=== PATIENT | male | born 1945 | race Caucasian/White ===

== ENCOUNTER 2023-11-28 11:02 | Inpatient (IN) | payer OTHER, SELFPAY ==
[2023-11-28] VITALS (9 sets, daily range): BP systolic 102–127; BP diastolic 62–76; BMI 18.0; BMI 17.5
[2023-11-28 07:47] LABS: % Basophils 0.1 % (0-2); % Eosinophils 0.1 % (0-6); % Immature Granulocytes 0.6 % (0-0.5); % Lymphocytes 5.3 % (20.5-51.1); % Monocytes 5.8 % (1.7-9.3); % Neutrophils 88.1 % (42.2-75.2); Absolute Immature Granulocytes 0.1 10^3/uL (0-0.05); Absolute Lymphocytes 0.5 10^3/uL (1.2-3.4); Absolute Monocytes 0.6 10^3/uL (0.1-0.6); Hematocrit 32.6 % (39.0-52.0); Hemoglobin 11.4 g/dL (13.0-18.0); Mean Corpuscular Hgb 31.7 pg (27.0-31.0); Mean Corpuscular Volume 90.6 fL (80.0-94.0); Mean Platelet Volume 11.3 fL (7.4-10.4); Nucleated Red Blood Cells % 0.3 % (-); Platelet Count 265 10^3/uL (130-400); White Blood Cell Count 10.2 10^3/uL (4.8-10.8)
[2023-11-28 07:52] LABS: Urine Albumin 1+ (Neg - Trace); Urine Bilirubin 2+ (Negative); Urine Character Clear (Clear); Urine Color Yellow; Urine Glucose Negative (Negative); Urine Ketone Trace (Negative); Urine Leukocyte Trace (Negative); Urine Nitrite Negative (Negative); Urine Occult Blood 4+ (Negative); Urine Specific Gravity 1.025 (<1.030); Urine Urobilinogen 2+ (Neg - 1+)
[2023-11-28 08:02] LABS: COVID-19 Antigen Negative (Negative)
[2023-11-28 08:03] LABS: Alcohol None Detected; Blood Urea Nitrogen 45 mg/dl (9-20); Carbon Dioxide 26 mmol/L (22-30); Chloride 96 mmol/L (98-107); Estimated Creatinine Clearance 30 ml/min; Glucose 92 mg/dl (70-99); Sodium 135 mmol/L (135-145); eGFR 47.65
[2023-11-28 08:05] LABS: Calcium 13.8 mg/dl (8.4-10.2)
--- NOTE | 2023-11-28 08:10 | EDRN ---
Dr Bishop notified of critical value CA
--- NOTE | 2023-11-28 08:14 | ED.GENMED ---
History of Present Illness
General
Chief Complaint: Change in Mental Status
Source: patient and spouse
Exam Limitations: none
Time Seen by Provider: 11/28/23 08:03
Nursing documentation reviewed up to this point in time: agreed with
Travel History
Have you had any contact with someone who has COVID-19?: Unable to Answer
Do you have any symptoms of coronavirus? Fever > 100 degrees, chills, cough, shortness of breath, sore throat, loss of taste or smell, muscle aches, or headache?: Unable to Answer
History of Present Illness
History of Present Illness:
78-year-old male presents emergency department due to weakness, altered mental status not eating and multiple falls. It seems to be getting worse over the past 3 days.
Past History
Past History
ED Past Medical History: CAD, HTN, Hypercholesterolemia, NE and Other (Sciatic )
ED Past Surgical History: Cardiac (Stent), Orthopedic (Right and left hip replacement) and Other (Lens implant)
Social History
Tobacco: Smoker
Alcohol: Daily (2-3 beers)
Drug: None
Personal:
Living: with family
Review of Systems
Review of Systems
Allergies reviewed?: Yes
All Other Systems: Not applicable
Constitutional: Reports fatigue
EENT: Reports no symptoms
Respiratory: Reports cough
Cardiac: Reports no symptoms
ABD/GI: Reports anorexia
: Reports no symptoms
Musculoskeletal: Reports no symptoms
Skin: Reports no symptoms
Neurological: Reports weakness and other (Confusion)
Endocrine: Reports no symptoms
Hematologic/Lymphatic: Reports no symptoms
Psychiatric: Reports no symptoms
Phy Exam
Physical Exam
Physical Exam:
Physical Exam
General: Thin, cachectic, afebrile
Neck: supple. no meningeal signs. normal posterior pharynx
Heart: s1/s2 regular rate and rhythm, no murmur. equal radial
pulses.
HEENT: Pupils equal round reactive to light, EOMI
Lungs: no acute respiratory distress. clear bilaterally, cough
Abdomen: normal bowel sounds. not tender. no CVAT
Neuro: alert and oriented to person. Moves all extremities, but globally weak. Cranial nerves II through XII intact
Skin: no rash
Psychiatric: well kept. interactive and cooperative
Extremities: no edema. no calf tenderness. negative homans. good distal pulses
Course
Orders/Labs/Results
Orders:
Orders
11/28/23 Breakfast
NPO
Allow oral meds: Yes
Allow clear liquids: No
11/28/23 07:06
Electrocardiogram (*1) Urgent
Reason for Study: Fatigue / Weakness
EKG- Treatment ONCE
11/28/23 07:08
Lidocaine 2% [Lidocaine Uro-Jet 2%] 1 syringe .ROUTE .STK-MED ONE
11/28/23 07:30
Alcohol Urgent
Basic Metabolic Panel Urgent
COVID-19 Antigen Urgent
Source: Nasal Swab
Complete Blood Count/With Diff Urgent
Urinalysis Reflex To Culture Urgent
Date Specimen was Collected: 11/28/23
Time Specimen was Collected: 07:06
Urine Microscopic Reflex Cult Urgent
Influenza A+B Rapid Molecular Urgent
ANGELINE Source: Nasal Swab
Specimen Description:
Date Specimen was Collected: 11/28/23
Time Specimen was Collected: 07:06
11/28/23 07:33
Lactic Acid Urgent
Blood Culture Routine
ANGELINE Source: Blood/Venous
Specimen Description:
11/28/23 08:14
CT Head W/o Iv Contrast Urgent
Comment:
Reason For Exam: altered mental status, recent fall
11/28/23 08:15
Pelvis, 1 or 2 Views CR [CR Pelvis - 1 Or 2 Views ] Urgent
Comment:
Reason For Exam: fall
11/28/23 08:16
CR Chest - 2 Views Urgent
Comment:
Reason For Exam: cough
11/28/23 08:28
0.9% Sodium Chloride 1000 ml [Nss] 2,000 ml IV BOLUS
11/28/23 10:21
Creatine Phosphokinase Urgent
Comment: ADDED
Uuazb-Tdki-Uaxrgyx Urgent
Potassium Urgent
TSH Urgent
Comment: ADDED
11/28/23 10:37
Admit/Transfer Patient As Directed
Co-Sign Provider:
Level of Care: Inpatient admission
Assign to:: Telemetry
Physician / Group: Francois
Diagnosis: TME, hypercalcemia
Reason for Telemetry: Arrhythmia
Date to Stop Telemetry: 12/01/23
Time to Stop Telemetry: 11:00
Reason for Hospitalization: Above
Expected length of stay greater than two midnights?: Yes
ELOS- Estimated Length of Stay in days: 2
I certify the patient meets the requirements for IP care: Yes
11/28/23 10:42
Code Status As Directed
Resuscitation Status: Do not resuscitate
Reached after discussion with pt or family/Healthcare POA: Yes
DNR Bracelet Application ONCE
11/28/23 10:47
Bladder Scan As Directed
Follow Bladder Retention/Intermittent Cath Algorithm?: Yes
PRN if no void in __ hours: 6
Frequency: Per Retention Algorithm
If Bladder Scan Result >: 400
then:: Straight cath
DX Deep Vein Thrombosis Video Routine
11/28/23 10:54
US Abdomen Complete/Upper Routine
Comment:
Reason For Exam: abnormal LFT
11/28/23 12:28
0.9% Sodium Chloride 1000 ml [Nss] 1,000 ml IV 125 mls/hr
11/28/23 12:28
Add On- LAB Routine
Tests Added?: CPK, TSH
NEPHROLOGY CONSULT Routine
Consulting Provider: Curtis George
Was physician already notified: Yes
Medical Records Request [Obtain Records] As Directed
Dates of Information to be Released: 11/27
Type of Information Requested: Last Office Visit H&P
Straight Cath As Directed
Frequency: Per Retention Algorithm
Additional Instructions: straight cath as needed per acute urinary retention algorithm for 24 hrs
Additional Instructions: for bladder scan greater than 400 mL
Physical Therapy Consult [Pt Eval And Treat] Routine
Activity Level: As Tolerated
Speech Therapy Eval & Treat Routine
11/28/23 12:33
Metoprolol Xl [Toprol Xl] 12.5 mg PO DAILY
11/28/23 12:47
Ammonia Routine
Lactic Acid Q6H
PTH Related Peptide LC-MS/MS [S] Routine
PTH [Intact PTH Includes Calcium] Routine
Protein Electrophoresis Reflex [S] Routine
11/28/23 18:28
Lactic Acid Q6H
11/28/23 20:00
Heparin 5,000 units SC Q12
11/29/23 06:00
CBC/With Diff [Complete Blood Count/With Diff] IN AM
CMP [Comprehensive Metabolic Panel] IN AM
Ionized Calcium IN AM
11/29/23 08:00
Aspirin Chewable [Low Strength Aspirin] 81 mg PO DAILY
12/01/23 11:00
DC Protocol for Telemetry ONCE
Abnormal Lab Results
11/28/23 11/28/23 11/28/23
07:30 07:33 10:21
RBC 3.60 L 10^6/uL
(4.70-6.10)
Hgb 11.4 L g/dL
(13.0-18.0)
Hct 32.6 L %
(39.0-52.0)
MCH 31.7 H pg
(27.0-31.0)
RDW 16.0 H %
(11.5-14.5)
MPV 11.3 H fL
(7.4-10.4)
Abs Immat Gran (auto) 0.1 H 10^3/uL
(0-0.05)
Absolute Neuts (auto) 9.0 H 10^3/uL
(1.4-6.5)
Absolute Lymphs (auto) 0.5 L 10^3/uL
(1.2-3.4)
Immature Gran % 0.6 H %
(0-0.5)
Neutrophils % 88.1 H %
(42.2-75.2)
Lymphocytes % 5.3 L %
(20.5-51.1)
Chloride 96 L mmol/L
(98-107)
BUN 45 H mg/dl
(9-20)
Creatinine 1.5 H mg/dL
(0.7-1.3)
Lactic Acid 4.0 H* mmol/L
(0.7-2.0)
Calcium 13.8 H* mg/dl
(8.4-10.2)
Total Bilirubin 4.9 H mg/dl
(0.2-1.3)
Direct Bilirubin 3.6 H mg/dl
(0.0-0.4)
AST 581 H* U/L
(17-59)
ALT 163 H U/L
(0-50)
Alkaline Phosphatase 375 H U/L
(38-126)
Creatine Kinase 352 H U/L
(55-170)
Total Protein 6.0 L g/dl
(6.3-8.2)
Albumin 2.8 L g/dl
(3.5-5.0)
Urine Ketones Trace A
(Negative)
Ur Occult Blood Reflex 4+ A
(Negative)
Urine Bilirubin 2+ A
(Negative)
Urine Urobilinogen 2+ A
(Neg - 1+)
Leukocyte Esterase Rfl Trace A
(Negative)
Urine RBC >100 A /HPF
(0-2)
Urine Bacteria (Reflex) Few A
(Negative)
Urine Albumin (Reflex) 1+ A
(Neg - Trace)
11/28/23 07:30
11/28/23 10:21
Vital Signs
Initial and Last Documented VS:
Initial Vital Signs
BP
102/72
11/28/23 07:00
Last Documented Vital Signs
Temp Pulse Resp BP Pulse Ox
97.6 F 96 22 124/68 96
11/28/23 12:42 11/28/23 12:42 11/28/23 12:42 11/28/23 12:42 11/28/23 12:42
MDM/Problems Addressed
Differential Diagnosis Includes:
Malignancy, hypercalcemia, acute kidney injury, hypertension 78-year-old
MDM/Problems Addressed:
78-year-old male with hypercalcemia, possibly malignancy, acute kidney injury, lactic acidosis. Admit to hospitalist.
Chronic conditions affecting care: HTN and CAD
Acute Exacerbation and/or Progression of Chronic Illness: HTN and CAD
*Radiology
Radiology exam reviewed: radiology read reviewed (Chest x-ray no acute findings, pelvic x-ray no acute findings, CT head no acute findings)
*Pulse Oximetry
Patient hypoxic: no
*EKG
Interpreted by ED Provider?: Yes
EKG Intrepretation Date: 11/28/23
EKG Intrepretation Time: 07:11
Interpretation: abnormal
Comparison EKG: changes noted
Heart Rate: 96
Rate: normal
Rhythm: sinus
Deloit: normal axis
Interval: first degree heart block
QRS Pattern: normal QRS
Ischemia: T-wave inversion
*Beater Engineer Interpretation
Rate: normal
Interpretation: normal
Heart Rate: 95
Rhythm: sinus
*Critical Care Note
Total Time (30-74mins, 75-104mins- exclusive of procedures): Not Applicable
Data Reviewed
Review of Other/Old Records Reveals: Labs (Prior hemoglobin 10.9 on 06/25/2023, prior calcium 8.6 on 06/25/2023)
Source: records
Patient Management
Social determinants of health affecting care: Living situation
Discussion with other providers: Hospitalist
Escalation/DeEscalation of care consider admission/obs:
Admit indicated
ED Attending Note
-
Portions of this chart may have been created with voice recognition software.� Occasional wrong word or��sound alike� substitutions may have occurred due to the inherent limitations of voice recognition software.
Discharge Plan
Departure
Patient Disposition: Admit
Date of Disposition: 11/28/23
Time of Disposition: 09:10
Admit to: IMU
Presentation/result/management discussed w/ accepting MD/DO: Hospitalist
Patient with high blood pressure during this ER visit?: No
Condition: Fair
Discharge Problem:
Acute renal failure, Hypercalcemia, Altered mental status, Acidosis, lactic
Interventions
Interventions:
*Risk Screen - Suicide Last Done: 11/28/23 12:45
*General Assessment Last Done: 11/28/23 07:36
*Neglect/Abuse Screening Last Done: 11/28/23 07:39
ED- Fall Risk Assessment Last Done: 11/28/23 07:36
*ED COVID-19 Vaccine History Last Done: 11/28/23 12:45
*Nursing Disposition Last Done: 11/28/23 12:22
ED- Pulmonary Assessment Last Done: 11/28/23 07:37
ED- Neurological Assessment Last Done: 11/28/23 07:37
ED- Cardiac Assessment Last Done: 11/28/23 07:36
ED Swallowing Screen Last Done: 11/28/23 09:34
Discharge Date and Time
Discharge Date/Time: 11/28/23 12:23
[2023-11-28] MEDS: NSS 2000 IV (08:30)
[2023-11-28 09:24] LABS: Urine Amorphous Seen
[2023-11-28 09:25] LABS: Urine Red Blood Cell >100 /HPF (0-2); Urine White Cell 0-2 /HPF (0-5)
[2023-11-28 09:26] LABS: Urine Bacteria Few (Negative)
--- NOTE | 2023-11-28 10:48 | HPS.HSE ---
Family Physician
-
Family Physician: Eduardo Barraza MD
Chief Complaint
-
Altered mental status
History of Present Illness
Patient is a 78-year-old male with history of coronary artery disease, hypertension, tobacco smoking, alcohol use disorder who was brought to the emergency room accompanied by his due to altered mental status. Patient himself not able to
present any additional information about his stating that patient is getting extremely weak not able to ambulate. He has minimal oral intake over the last few weeks with persistent loss of weight. There is no complaints of fever, chills or
any complaints suggestive of possible source of any infection. In addition patient's states that he has been confused and not making sense in conversations.
Patient has been evaluated by ENT for head and neck mass and plan for PET scan for presumed malignancy. No recent information available at this point.
Medical History
Past Medical History
Past Medical History: Reports CAD, HTN and Hypercholesterolemia
Past Surgical History: Reports Orthopedic
Social History
Tobacco: Smoker
Alcohol: Daily
Personal:
Living: With Family
Family History
Family History: Not pertinent
Allergies / Home Medications
Allergies reflects when Allergies were last updated in [facility].
Home Medications with original date entered in [facility]
Allergy/Medication List:
Allergies
Allergy/AdvReac Type Severity Reaction Status Date / Time
No Known Allergies Allergy Verified 11/28/23 07:44
Home Medications
atorvastatin 40 mg tablet 40 mg PO QPM High cholesterol 01/06/22
cyanocobalamin (vitamin B-12) 100 mcg tablet 1,000 mcg PO DAILY Supplement 01/06/22
metoprolol succinate 25 mg tablet,extended release 24 hr 12.5 mg PO DAILY Blood pressure 01/06/22
multivitamin with folic acid 400 mcg tablet (Tab-A-Lambert) 1 tab PO DAILY Supplement 01/06/22
alendronate 70 mg tablet 70 mg PO FR Osteoporosis 03/03/22
aspirin 81 mg chewable tablet 81 mg PO DAILY Blood Clot Prevention/Tx 06/25/23
cholecalciferol (vitamin D3) 25 mcg (1,000 unit) capsule (Vitamin D3) 25 mcg PO DAILY Supplement 11/28/23
ferrous sulfate 325 mg (65 mg iron) tablet (Feosol) 325 mg PO MOWEFR Supplement 11/28/23
Review of Systems
-
Unable to obtain full review of systems at this time due to: Acuity
Physical Exam
Vital Signs
Vital Signs
Temp Pulse Resp BP Pulse Ox
98.3 F 97 17 111/62 98
11/28/23 07:02 11/28/23 10:30 11/28/23 10:30 11/28/23 10:00 11/28/23 07:37
Physical Exam
General: Cachectic
HEENT: NormoCephalic, Moist mucous membranes and Atraumatic
Respiratory: Clear
Cardiac: S1/S2 and Regular Rhythm; No Murmur or Rub
GI: Soft, Non Tender, Non Distended and Normal Bowel Sounds; No Organomegaly
Rectal: Deferred by Provider
Musculoskeletal: No Clubbing, No Cyanosis and No Edema
Skin: No Rash
Neuro: Awake, Alert and Nonfocal/grossly intact; No Oriented
Laboratory Results
-
11/28/23 07:30
Laboratory Results
Lactic Acid 4.0 mmol/L (0.7-2.0) H* 11/28/23 07:33
Total Bilirubin Cancelled 11/28/23 09:25
AST Cancelled 11/28/23 09:25
ALT Cancelled 11/28/23 09:25
Alkaline Phosphatase Cancelled 11/28/23 09:25
Data Reviewed
-
CT Scan: Report Reviewed by me
Lab Data: Labs Reviewed by me
Impression/Plan
-
IMPRESSION:
78 years old male with history of coronary artery disease and stent, hypertension alcohol use and tobacco use disorder who presents to the emergency room with altered mental status.
Toxic metabolic encephalopathy suspect secondary to severe hypercalcemia. Calcium level 13.8
Acute kidney injury.
Abnormal LFTs with mixed picture of hyperbilirubinemia and transaminitis
Lactic acidosis.
Cachexia, severe with BMI of 18.
Head and neck mass being worked up as outpatient
Conditions prior to admission:
CAD with history of percutaneous interventions
Essential hypertension
Preserved LVEF by echocardiogram 2020
Tobacco use disorder
Alcohol use disorder
History of ambulatory dysfunction with falls
Bilateral hip fracture with repair.
PLAN:
Toxic metabolic encephalopathy suspect secondary to severe hypercalcemia and SAMARA.
Patient is lethargic, while limited neurologic exam has no focal findings
CT scan of the head with no acute abnormality.
Continue close neurologic monitoring
Correct electrolyte abnormalities
Acute kidney injury.
Lactic acidosis.
Severe hypercalcemia
Hypochloremic/contraction alkalosis.
Bladder scan on exam with no retention.
Urinalysis with microhematuria and +1 proteinuria
Check CPK.
Ionized calcium
PTH.
SPEP
Monitor for retention
Patient with head and neck mass being worked up with ENT with concern for malignancy. Obtain outpatient medical records.
Lactic acidosis, although afebrile with normal white count and hemodynamically stable with at this point likely concern for infection. Monitor closely off antibiotics pending blood cultures
IV hydration with isotonic solution. Avoid hypotension
May require biphosphonate.
Abnormal LFT.
Patient with history of alcohol use disorder.
Will check ultrasound of the abdomen.
Hepatitis serologies
Check CPK.
Hold statin
CAD.
History of stent
Most recent echo in 2020 with preserved biventricular function.
Continue aspirin
Hold statin given abnormal LFTs
Alcohol use disorder.
Patient's reported last alcoholic drink about 3 weeks
Patient with overall failure to thrive and low oral intake.
Monitor for possible withdrawal, although less likely at this point.
Severe cachexia.
BMI 18
Nutrition consult.
CODE STATUS DNR
In discussion with patient's at the bedside she states that he would not like to have any aggressive/heroic measures of life maintenance
DVT prophylaxis heparin.
[2023-11-28 10:49] LABS: ALT (SGPT) 163 U/L (0-50); AST (SGOT) 581 U/L (17-59); Albumin 2.8 g/dl (3.5-5.0); Alkaline Phosphatase 375 U/L (38-126); Direct Bilirubin 3.6 mg/dl (0.0-0.4); Potassium 4.2 mmol/L (3.5-5.1); Total Bilirubin 4.9 mg/dl (0.2-1.3)
--- NOTE | 2023-11-28 12:00 | PTCARENOTE ---
Received pt from ER. Pt awake, alert and oriented to himself, garbled speech very difficult to understand/ slow to process, slow to respond. Stares blankly when asked a question. Pt VSS 96% on RA. at bedside to help with admission questions.Pt
did not pass swallow screen NPO order in place, unable to take PO meds, MD aware. Pt has no c/o pain at this time.NSR-PACs and PVCs on tele. Pt oriented to room, call ambrosio within reach, HOB elevated, Bed alarm in place, plan of care continues.
[2023-11-28 13:10] LABS: Ammonia < 9 umol/L (9-30); Lactic Acid 2.6 mmol/L (0.7-2.0)
[2023-11-28] MEDS: NSS 1000 IV ×2 (13:31→21:46)
--- NOTE | 2023-11-28 13:36 | W.CON.NEPH ---
Consultation
-
Date/Time Consultation Requested: 09/28/2023 9 AM
Date/Time Consultation Performed: 02/28/2024 1 PM
Requesting Provider: Dr. Parrish
Performing Provider: Dr. George
Reason for Consultation: Hypercalcemia, acute kidney injury
Medical History
-
Chief Complaint: Hypercalcemia, acute kidney injury
History of Present Illness:
This is a 78-year-old gentleman who has hypertension on a monotherapy regimen, hyperlipidemia on statin therapy, osteoporosis on bisphosphonate therapy. He had been in the hospital in June of last year with bronchitis. CT scan of the chest at
that time did not show any abdominal pathology from what could be seen. Several weeks ago he had apparently reported a mass at the base of his jaw and had seen ENT at [place]. A CT scan was performed and a biopsy of a lymph node was also
performed. The results of these are currently unavailable. However, the reports that a PET scan was also ordered as well. He had also been having failure to thrive with decreasing appetite and weight loss. Initially a abdominal CT was
ordered for today. He came to the emergency room this time because of worsening mental status. He was noted to have hypercalcemia at 13.8 with acute kidney injury at 1.5 creatinine.
Past Medical History
Coronary artery disease with stenting, hypertension, hyperlipidemia, osteoporosis, bilateral femur ORIF, right humerus ORIF
Social History
Tobacco: Smoker
Alcohol: Daily
Family History
Family History: Not Pertinent
Allergies / Home Medications
Allergy/AdvReac Type Severity Reaction Status Date / Time
No Known Allergies Allergy Verified 11/28/23 07:44
�Medication �Instructions �Recorded �Confirmed �Type
atorvastatin 40 mg tablet 40 mg PO QPM High cholesterol 01/06/22 11/28/23 History
cyanocobalamin (vitamin B-12) 100 1,000 mcg PO DAILY Supplement 01/06/22 11/28/23 History
mcg tablet
metoprolol succinate 25 mg 12.5 mg PO DAILY Blood pressure 01/06/22 11/28/23 History
tablet,extended release 24 hr
multivitamin with folic acid 400 1 tab PO DAILY Supplement 01/06/22 11/28/23 History
mcg tablet (Tab-A-Lambert)
alendronate 70 mg tablet 70 mg PO FR Osteoporosis 03/03/22 11/28/23 History
aspirin 81 mg chewable tablet 81 mg PO DAILY Blood Clot 06/25/23 11/28/23 History
Prevention/Tx
cholecalciferol (vitamin D3) 25 25 mcg PO DAILY Supplement 11/28/23 11/28/23 History
mcg (1,000 unit) capsule (Vitamin
D3)
ferrous sulfate 325 mg (65 mg 325 mg PO MOWEFR Supplement 11/28/23 11/28/23 History
iron) tablet (Feosol)
Review of Systems
-
No chest pain or shortness of breath. Decreased appetite.
All other systems: Negative unless noted
Physical Exam
Vital Signs
Vital Signs
Temp Pulse Resp BP Pulse Ox
97.6 F 96 22 124/68 96
11/28/23 12:42 11/28/23 12:42 11/28/23 12:42 11/28/23 12:42 11/28/23 12:42
Lab Results
WBC 10.2 10^3/uL (4.8-10.8) 11/28/23 07:30
RBC 3.60 10^6/uL (4.70-6.10) L 11/28/23 07:30
Hgb 11.4 g/dL (13.0-18.0) L 11/28/23 07:30
Hct 32.6 % (39.0-52.0) L 11/28/23 07:30
Plt Count 265 10^3/uL (130-400) 11/28/23 07:30
Sodium 135 mmol/L (135-145) 11/28/23 07:30
Potassium 4.2 mmol/L (3.5-5.1) 11/28/23 10:21
Chloride 96 mmol/L (98-107) L 11/28/23 07:30
Carbon Dioxide 26 mmol/L (22-30) 11/28/23 07:30
BUN 45 mg/dl (9-20) H 11/28/23 07:30
Creatinine 1.5 mg/dL (0.7-1.3) H 11/28/23 07:30
eGFR 47.65 11/28/23 07:30
Glucose 92 mg/dl (70-99) 11/28/23 07:30
Albumin 2.8 g/dl (3.5-5.0) L 11/28/23 10:21
Physical Exam
Patient is awake alert oriented and in no distress. Mood and affect were pleasant, insight and judgment were good. Pupils are equal round and reactive to light, extraocular movements are intact, sclera were anicteric. Hearing was normal, ears and
nose are intact. Oropharynx was dry. Neck was supple with trachea midline and no thyromegaly. Firm mass approximately 8 cm in width at the base of the jaw. Heart was regular rate and rhythm without rubs. Lower extremities without edema. Lungs
were clear to auscultation bilaterally and with normal excursion. Abdomen was soft, nontender, with normal active bowel sounds, and no hepatosplenomegaly. Firm mass approximately 8 cm in width in the epigastric region. skin was without rash and
with normal turgor.
Data Reviewed
-
Radiology: Image Personally Visualized and interpreted (On November 28, 2023 chest x-ray by my reading shows no acute disease)
CT Scan: Report Reviewed by me (On November 28, 2023 CT of the head shows no skull lesions)
Ultrasound: Report Reviewed by me (On November 28, 2023 abdominal ultrasound with symmetric kidneys 9.9 cm, discrete enlarged heterogeneous liver lesions up to 8.7 cm in the right lobe consistent with metastatic disease)
Labs: Labs Reviewed by me (WBC 10.2, hemoglobin 11.4, platelets 265, sodium 135, potassium 4.2, carbon dioxide 26, BUN 45, creatinine 1.5, lactic acid 2.6, calcium 13.8, total bilirubin 4.9, direct bilirubin 3.6, AST 581, ALT 163)
Old Records: Reviewed (CT chest on June 24, 2023 shows no liver lesions)
Assessment/Plan
-
Assessment:
Hypercalcemia
Acute kidney injury
Hypertension
Tongue mass
Abdominal mass
Liver nodules likely metastatic disease
Coronary artery disease
Osteoporosis
Plan:
Hypercalcemia workup has been ordered, blood work has been drawn. 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
Pamidronate will be given
Saline volume repletion
Follow basic metabolic profile
Abdominal/Pelvis CT
Will need results of lymph node biopsy from [place]
Discussed with at length
[2023-11-28 13:47] LABS: Creatine Phosphokinase 352 U/L (55-170)
[2023-11-28 13:55] LABS: Calcium 13.1 mg/dl (8.4-10.2)
[2023-11-28] MEDS: AREDIA 260 MG IV (14:21)
[2023-11-28 14:48] LABS: Phosphorus 4.3 mg/dl (2.5-4.5)
[2023-11-28 14:59] LABS: Vitamin D, 25-OH*** 61.7 ng/mL (30-80)
[2023-11-28 15:13] LABS: TSH 1.92 uIU/ml (0.47-4.68)
[2023-11-28] MEDS: THIAMINE INJECTION 200 MG IV ×2 (17:07→23:43)
[2023-11-28 19:16] LABS: Lactic Acid 2.4 mmol/L (0.7-2.0)
[2023-11-28] MEDS: HEPARIN 5000 UNITS SC (20:54)
[2023-11-29] VITALS (10 sets, daily range): BP systolic 87–133; BP diastolic 54–79
[2023-11-29] MEDS: ATIVAN 0.5 MG IV (00:45)
[2023-11-29] MEDS: NSS (PRESERVATIVE FREE) 0.25 ML IV (00:45)
--- NOTE | 2023-11-29 00:49 | PTCARENOTE ---
MSAS at 0000 - 5. Patient restless, 133/72, 112, temp 98.2 axillary, pulse ox 96 on 2 L. OPERATIONAL REVIEW SERGEANT made aware and ordered stat Ativan.
[2023-11-29] MEDS: NSS 1000 IV ×3 (05:22→20:32)
[2023-11-29 06:36] LABS: % Basophils 0.1 % (0-2); % Immature Granulocytes 0.5 % (0-0.5); % Lymphocytes 2.9 % (20.5-51.1); % Monocytes 5.1 % (1.7-9.3); % Neutrophils 91.4 % (42.2-75.2); Absolute Immature Granulocytes 0.1 10^3/uL (0-0.05); Absolute Lymphocytes 0.4 10^3/uL (1.2-3.4); Absolute Monocytes 0.6 10^3/uL (0.1-0.6); Absolute Neutrophils 11.2 10^3/uL (1.4-6.5); Hematocrit 28.9 % (39.0-52.0); Hemoglobin 9.7 g/dL (13.0-18.0); Ionized Calcium 1.73 mMOL/L (1.15-1.33); Mean Corp Hgb Conc. 33.6 g/dL (33.0-37.0); Mean Corpuscular Hgb 31.2 pg (27.0-31.0); Mean Corpuscular Volume 92.9 fL (80.0-94.0); Mean Platelet Volume 11.2 fL (7.4-10.4); Nucleated Red Blood Cells % 0 % (-); Platelet Count 233 10^3/uL (130-400); Red Blood Cell Count 3.11 10^6/uL (4.70-6.10); Red Cell Dist. Width 16.4 % (11.5-14.5); White Blood Cell Count 12.3 10^3/uL (4.8-10.8)
--- NOTE | 2023-11-29 06:40 | PTCARENOTE ---
Critical lab. Ionized Calcium 1.73. Ofe Felder NP aware.
[2023-11-29 07:11] LABS: ALT (SGPT) 177 U/L (0-50); AST (SGOT) 611 U/L (17-59); Albumin 2.8 g/dl (3.5-5.0); Alkaline Phosphatase 361 U/L (38-126); Blood Urea Nitrogen 43 mg/dl (9-20); Calcium 12.9 mg/dl (8.4-10.2); Carbon Dioxide 22 mmol/L (22-30); Chloride 107 mmol/L (98-107); Estimated Creatinine Clearance 29 ml/min; Glucose 77 mg/dl (70-99); Potassium 4.1 mmol/L (3.5-5.1); Sodium 140 mmol/L (135-145); Total Bilirubin 4.9 mg/dl (0.2-1.3); Total Protein 5.9 g/dl (6.3-8.2)
[2023-11-29] MEDS: HEPARIN 5000 UNITS SC ×2 (09:22→20:32)
[2023-11-29] MEDS: THIAMINE INJECTION 200 MG IV ×2 (09:24→16:17)
--- NOTE | 2023-11-29 12:21 | W.PN.NEPH.PH ---
Today's Communication / Plan
-
follow BMP
Assessment/Plan
-
Assessment:
Hypercalcemia
Acute kidney injury
Hypertension
Tongue mass
Abdominal mass
Liver nodules likely metastatic disease
Coronary artery disease
Osteoporosis
Plan:
continue IVF
Follow basic metabolic profile
Will need results of lymph node biopsy from [place]
prognosis is poor given current poor performance status
-
-
Date of Service: November 29, 2023
CC / HPI / ROS
-
Chief Complaint:
hypercalcemia
History of Present Illness:
SAMARA/Cr up to 1.6
Calcium down to 12.9 with pamidronate
no po intake, on IVF
BP stable
LFT remain elevated
Review of Systems:
no CP/SOB/Fever
Labs
-
Labs:
WBC 12.3 10^3/uL (4.8-10.8) H 11/29/23 06:00
RBC 3.11 10^6/uL (4.70-6.10) L 11/29/23 06:00
Hgb 9.7 g/dL (13.0-18.0) L 11/29/23 06:00
Hct 28.9 % (39.0-52.0) L 11/29/23 06:00
Plt Count 233 10^3/uL (130-400) 11/29/23 06:00
Sodium 140 mmol/L (135-145) 11/29/23 06:00
Potassium 4.1 mmol/L (3.5-5.1) 11/29/23 06:00
Chloride 107 mmol/L (98-107) 11/29/23 06:00
Carbon Dioxide 22 mmol/L (22-30) 11/29/23 06:00
BUN 43 mg/dl (9-20) H 11/29/23 06:00
Creatinine 1.6 mg/dL (0.7-1.3) H 11/29/23 06:00
eGFR 44.10 11/29/23 06:00
Glucose 77 mg/dl (70-99) 11/29/23 06:00
Calcium 12.9 mg/dl (8.4-10.2) H 11/29/23 06:00
Phosphorus Cancelled 11/28/23 13:57
Albumin 2.8 g/dl (3.5-5.0) L 11/29/23 06:00
Physical Exam
-
Vital Signs:
Vital Signs
Temp Pulse Resp BP Pulse Ox
97.8 F 100 14 103/69 97
11/29/23 11:15 11/29/23 11:15 11/29/23 11:15 11/29/23 11:15 11/29/23 11:15
Cardiovascular:: Regular rate and rhythm
Respiratory:: Bilateral: Coarse
Lung Excursion:: Normal
Abdomen:: Nontender and Soft
Bowel Sounds:: Normal
Extremity Edema:: None: Bilateral:
--- NOTE | 2023-11-29 15:36 | CM ---
Patient seen bedside with spouse.
Patient slept soundly the entire time.
Patient lives with spouse in 2nd floor apartment, apparently they have 2 apartments.
No elevator access, just steps.
Per spouse patient was able to navigate steps.
Patient has over the toilet commode, walker and cane.
cannot recall VN or name of skilled rehab patient was in in the past.
PT evaluation (P).
Options list reviewed with spouse for potential VN vs skilled rehab.
PCP: Dr galo
Pharmacy: [facility]
Plan: home with VN vs skilled rehab.
--- NOTE | 2023-11-29 17:22 | W.PN.HOSP.TC ---
Today's Communication/Plan
-
IVF
Pamidronate
Pending outpatient medical records including recent path from ENT base tong mass biopsy
Consider onc consultation
Assessment / Plan
Assessment / Plan
IMPRESSION:
78 years old male with history of coronary artery disease and stent, hypertension alcohol use and tobacco use disorder who presents to the emergency room with altered mental status.
Toxic metabolic encephalopathy suspect secondary to severe hypercalcemia. Calcium level 13.8
Acute kidney injury.
Abnormal LFTs with mixed picture of hyperbilirubinemia and transaminitis
Lactic acidosis.
Cachexia, severe with BMI of 18.
Head and neck mass being worked up as outpatient
Conditions prior to admission:
CAD with history of percutaneous interventions
Essential hypertension
Preserved LVEF by echocardiogram 2020
Tobacco use disorder
Alcohol use disorder
History of ambulatory dysfunction with falls
Bilateral hip fracture with repair.
PLAN:
Toxic metabolic encephalopathy suspect secondary to severe hypercalcemia and SAMARA.
Patient is lethargic, while limited neurologic exam has no focal findings
CT scan of the head with no acute abnormality.
Continue close neurologic monitoring
Correct electrolyte abnormalities
Acute kidney injury.
Lactic acidosis.
Severe hypercalcemia
Hypochloremic/contraction alkalosis.
Bladder scan on exam with no retention.
Urinalysis with microhematuria and +1 proteinuria
PTH.
SPEP
Monitor for retention
Patient with head and neck mass being worked up with ENT with concern for malignancy. Obtain outpatient medical records.
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
Lactic acidosis, although afebrile with normal white count and hemodynamically stable with at this point likely concern for infection. Monitor closely off antibiotics pending blood cultures
IV hydration with isotonic solution. Avoid hypotension
Pamidronate
Abnormal LFT.
Patient with history of alcohol use disorder.
Will check ultrasound of the abdomen.
Hepatitis serologies
Check CPK.
Hold statin
CAD.
History of stent
Most recent echo in 2020 with preserved biventricular function.
Continue aspirin
Hold statin given abnormal LFTs
Alcohol use disorder.
Patient's reported last alcoholic drink about 3 weeks
Patient with overall failure to thrive and low oral intake.
Monitor for possible withdrawal, although less likely at this point.
Severe cachexia.
BMI 18
Nutrition consult.
CODE STATUS DNR
In discussion with patient's at the bedside she states that he would not like to have any aggressive/heroic measures of life maintenance
DVT prophylaxis heparin.
Anticipated Discharge: > 48 hours
Subjective/Interval History
-
Date of Service: November 29, 2023
Objective Data
-
Labs:
Laboratory Results
11/29/23
06:00
WBC 12.3 H
Hgb 9.7 L
Hct 28.9 L
Plt Count 233
Sodium 140
Potassium 4.1
Chloride 107
Carbon Dioxide 22
BUN 43 H
Creatinine 1.6 H
Glucose 77
Calcium 12.9 H
Total Bilirubin 4.9 H
AST 611 H*
ALT 177 H
Alkaline Phosphatase 361 H
Vital Signs:
Vital Signs
Temp Pulse Resp BP Pulse Ox
97.5 F 97 20 116/70 98
11/29/23 16:00 11/29/23 16:00 11/29/23 16:00 11/29/23 16:00 11/29/23 16:00
I&O
11/28/23 11/29/23 11/30/23
06:59 06:59 06:59
Intake Total 0 / 0
Balance 0 / 0
[2023-11-29 20:52] LABS: Glucose - Point of Care 110 mg/dl (70-99)
[2023-11-29] MEDS: MORPHINE SULFATE 1 MG IV (20:59)
[2023-11-29 21:08] LABS: B.E. -6.5 mmol/L; HCO3 20.6 mmol/L (21-28); O2 Saturation % 96.5 % (94-98); PCO2 47 mmHg (35-48); PO2 81 mmHg (83-108); pH 7.25 (7.35-7.45)
[2023-11-29 21:10] LABS: O2 Therapy %Oxygen/Room Air 93
[2023-11-29 21:15] LABS: Hematocrit 29.8 % (39.0-52.0); Hemoglobin 10.2 g/dL (13.0-18.0); Mean Corp Hgb Conc. 34.2 g/dL (33.0-37.0); Mean Corpuscular Hgb 31.7 pg (27.0-31.0); Mean Corpuscular Volume 92.5 fL (80.0-94.0); Mean Platelet Volume 10.5 fL (7.4-10.4); Platelet Count 258 10^3/uL (130-400); Red Blood Cell Count 3.22 10^6/uL (4.70-6.10); Red Cell Dist. Width 16.7 % (11.5-14.5); White Blood Cell Count 11.1 10^3/uL (4.8-10.8)
[2023-11-29 21:30] LABS: Magnesium 2.1 mg/dl (1.6-2.3)
[2023-11-29 21:35] LABS: COVID-19 Antigen Negative (Negative)
[2023-11-29 21:39] LABS: NT-proBNP 4380 pg/ml
--- NOTE | 2023-11-29 22:00 | PTCARENOTE ---
Addendum entered by Jesika Gordon RN 11/30/23 00:37:
Pt at bedside and is really upset. Pt remains on Midflow and NRB, SaO2 93-96%. Drowsy and nonresponsive. Shallow breathing. SBP has been mid 80's. Comfort measure will be talked with .
Original Note:
PROFESSOR OF APOLOGETICS was notified concerning pt mental and physical state. Pt was nonresponsive, eye rolling over, and nonverbal. St in the monitor. Lung sounds were coarse, labor breathing, tachypneic, pale and cyanotic. SaO2 56% 2L. pt was place on NRB 15L. Pt was
able to come up to 93%. Morphine 1 mg Iv giving, CXR, ABG and CT of Head order. SBP was in the high 80's to 90's. Will continue with tx.
[2023-11-29 23:02] LABS: ALT (SGPT) 184 U/L (0-50); AST (SGOT) 630 U/L (17-59); Albumin 2.7 g/dl (3.5-5.0); Alkaline Phosphatase 348 U/L (38-126); Blood Urea Nitrogen 43 mg/dl (9-20); Calcium 12.6 mg/dl (8.4-10.2); Carbon Dioxide 20 mmol/L (22-30); Chloride 110 mmol/L (98-107); Estimated Creatinine Clearance 31 ml/min; Glucose 85 mg/dl (70-99); Potassium 3.9 mmol/L (3.5-5.1); Sodium 140 mmol/L (135-145); Total Protein 5.9 g/dl (6.3-8.2); eGFR 47.65
[2023-11-30] MEDS: THIAMINE INJECTION IV (00:21)
[2023-11-30 00:33] VITALS: BP 88/54
[2023-11-30] MEDS: MORPHINE SULFATE 1 MG IV (00:51)
--- NOTE | 2023-11-30 01:58 | W.PN.UPDATE ---
Update Note
Progress Note Update
This LIFE SKILLS COORDINATOR VOLUNTEER was called to see the patient soon by RN. RN stated, patient is hypoxic, sat 56%. Patient seen and evaluated, pale, eyes rolled up, lethargic, tachypneic at 30, HR 110, Sat 89% -91%, 96/64, 98.1, NRM,, Morphine 1mg IV ordered, CXR, labs,
ABG's, and CT head ordered. Addressed the current situation to spouse Maura, and stated she will over soon.
Reviewed labs, chest xray (discussed with Dr. Huang), CT head, ABG noted. Also discussed with sourcing internship Dr. George, Advised to give 60mg IV. Patient BP noted to be in 80's so unable to give Lasix IV 60mg. Patient oxygen sat continues to drop down to
70's -80' on NRM and NC, Also BP kept dropping to 80's Systolically regardless of continuos IV fluids NS.
at the bedside, discussed the prognosis and current condition, Maura verbalized understanding and wants patient, her to be at comfort level at present, wants all other treatments to be stopped. will order hospice consult, will
order comfort care measures
[2023-11-30] MEDS: NSS 1000 IV (05:48)
[2023-11-30 07:40] VITALS: BP 95/59
--- NOTE | 2023-11-30 09:48 | CM ---
Case Management consult completed
Spoke with patient's ; Hospice is her preference for Hospice referral to evaluate and treat
On-Call pastoral ministries professor notified via [employer]; referral submitted via [employer]
--- NOTE | 2023-11-30 10:09 | HOSPNOTE ---
Spoke with spouse and it appears patient is actively dying. I requested a private room but at this time we are full but many discharges today. Patient will be moved when room is available. Spoke to the floor MARGAUX Albert and we are both in agreement
patient will be medicated with morphine for shortness of breath and wean down oxygen support. I will be available for family. Will continue to follow.
[2023-11-30] MEDS: MORPHINE SULFATE 2 MG IV ×3 (10:22→13:19)
--- NOTE | 2023-11-30 10:30 | PTOTSP ---
Orders received, chart reviewed. Patient is for transition to hospice care; not appropriate for skilled therapy. Will be discharged at this time. If needs change, please re-consult.
--- NOTE | 2023-11-30 11:21 | PN.CDI ---
CDI
- -
CDI:
Physician Documentation Request
Admit Date: 11/28/23 11:02
Dear Doctor Francois,
11/27 RD note states 'severe fat and muscle loss was observed.... Per ASPEN/AND guidelines, pt meets for severe malnutrition in context of chronic illness as evidenced by < 50% intake est needs x > 1 month, 10.8 % weight loss x 6 months, muscle/fat
loss'
Hospitalist progress notes report severe cachexia.
Based on the information, which of the following most accurately represents the patient's nutritional status?
Severe malnutrition
Cachexia without malnutrition
Underweight without malnutrition
Other (please specify)
[place] Criteria ([facility] Hospitalist 2017)
2 or more criteria must be present for either
non severe or severe malnutrition
Note that the criteria differs related to the
presence of an acute or chronic illness
Acute Illness Chronic Illness
Energy Intake Non Severe: <75% for >7 days Non Severe: <75% for >1 month
Severe: <50% for >5 days Severe: <75% for >1 month
Weight Loss Non Severe: 1-2% over 1 week Non Severe: 5% over 1 month
5% over 1 month 7.5% over 3 months
7.5% over 3 months 10% over 6 months
1 year N/A 20% over 1 year
Severe: >2% over 1 week Severe: >5% over 1 month
>5% over 1 month >7.5% over 3 months
>7.5% over 3 months >10% over 6 months
1 year N/A >20% over 1 year
Body Fat Non Severe: Mild Decrease Non Severe: Mild Loss
Severe: Moderate Decrease Severe: Severe Loss
Muscle Mass Non Severe: Mild Decrease Non Severe: Mild Loss
Severe: Moderate Decrease Severe: Severe Loss
Fluid Accumulation Non Severe: Mild Accumulation Non Severe: Mild Accumulation
Severe: Moderate to severe Severe: Moderate to severe
accumulation accumulation
Reduced Sales Representative Livestock Strength Non Severe: N/A Non Severe: N/A
Severe: Measurably reduced Severe: Measurably reduced
Additional criteria that can be used to Determine if Mild or Moderate Malnutrition (Merck Manual 2018)
Mild Moderate Severe
Albumin gm/dl <3.0 gm/dl <2.5 gm/dl <2.0 gm/dl
Pre Albumin mg/dl <15 gm/dl <10 mg/dl <5.0 mg/dl
BMI <18.5 <17 <16
Use of terms such as suspected, likely, concern for, or probable (associated with a specific diagnosis that is being evaluated, monitored, or treated as if it exists) are acceptable and can be coded in the inpatient setting, when documented at the
time of discharge.
Thank you,
Valery Wolfe RN, BSN
CDI Specialist
tiger text
Please use your independent medical judgment in providing your response.
[2023-11-30 12:12] LABS: Intact PTH < 3.4 pg/ml (13.6-85.8)
--- NOTE | 2023-11-30 12:48 | PTCARENOTE ---
Received patient this Am on Comfort Care. Pt opens eye to verbal stimuli. Pt turned an repositioned Q2 hrs. Medicated with Morphine 2mh IV for comfort. Support given to family. Spoke to It Software Engineer Nurse tereza Garcia regarding POC. Made
patient comfortable. Cont to assess patient status. Report to 2 Thaddeus RN an patient transferred.
--- NOTE | 2023-11-30 16:33 | W.PN.DEATH ---
Pronouncement of
-
Called to see patient to pronounce.
No spontaneous heart tones or respirations noted.
Patient not responsive to verbal stimuli.
Patient is pronounced .
Time of : 14:50
Date of : 11/30/23
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
Family Notified: Yes
--- NOTE | 2023-12-01 09:05 | PN.CDI ---
CDI
- -
CDI:
Physician Documentation Request
Admit Date: 11/28/23 11:02
Dear Doctor Francois,
11/29 PLUMBING AND HEATING MECHANIC note states 'his PLUMBING AND HEATING MECHANIC was called to see the patient soon by RN. RN stated, patient is hypoxic, sat 56%. Patient seen and evaluated, pale, eyes rolled up, lethargic, tachypneic at 30, HR 110, Sat 89% -91% NRM.....Patient BP noted to be in 80's
so unable to give Lasix IV 60mg. Patient oxygen sat continues to drop down to 70's -80' on NRM and NC'
Per documented vital signs, pt was placed on NRB 11/28 ~2300 . Nursing note states 'labor breathing, tachypneic, pale and cyanotic. SaO2 56% 2L. pt was place on NRB 15L...'
Please clarify which of the following accurately represents the patient's respiratory status:
Acute respiratory failure - please indicate type
Hypoxia
Other
Additional information for Respiratory Failure:
Recognized criteria for Respiratory Failure (Source: [employer] Hospitalist May 2013)
ABGs: (1 or more) Symptoms Please indicate type if known
1. p)2 <60 or RA SPO2 <91% on RA 1. Tachypnea, SOB, dyspnea Hypoxic
2. pCO2 50 and pH <7.35 2. Use of accessory muscles Hypercapnic
3. pO2 decrease of pCO2 increase by 3. Pallor or cyanosis Hypoxic and Hypercapnic
10 mmHg from baseline if known 4. Anxiety or restlessness Unable to determine
5. Unable to speak in full sentences
Supplemental O2 of > 40% (5LPM) Intubation is not required
Use of terms such as suspected, likely, concern for, or probable (associated with a specific diagnosis that is being evaluated, monitored, or treated as if it exists) are acceptable and can be coded in the inpatient setting, when documented at the
time of discharge.
Thank you,
Valery Wolfe RN, BSN
CDI Specialist
tiger text
Please use your independent medical judgment in providing your response.
[2023-12-02 21:42] LABS: Vitamin D 1,25 Dihydroxy 28.6 pg/mL (19.9-79.3)
[2023-12-03 09:08] LABS: IgA 888 mg/dL (68-408); IgG 794 mg/dL (768-1632); IgM 163 mg/dL (35-263)
[2023-12-03 10:43] LABS: Albumin 2.84 g/dL (3.75-5.01); Alpha 1 Globulin 0.47 g/dL (0.19-0.46); Alpha 2 Globulin 0.54 g/dL (0.48-1.05); SPEP IFE Reflex IFE Done; Total Protein-Electrophoresis 5.9 g/dL (6.3-8.2)
[2023-12-03 12:41] LABS: PTH Related Peptide LC-MS/MS 90.8 pmol/L (0.0-2.3)
--- NOTE | 2023-12-08 08:28 | PN.CDI ---
Addendum entered and electronically signed by Nick Parrish MD 12/09/23 16:04:
no further comments
Original Note:
CDI
- -
CDI:
Physician Documentation Request
Admit Date: 11/28/23 11:02
Dear Doctor Francois,
Patient presented to ED due to weakness, altered mental status, not eating and multiple falls.
H&P includes a diagnosis of acute kidney injury
Creatinine resulted as follows:
Laboratory Tests
11/28/23 11/29/23 11/29/23
07:30 06:00 21:07
Creatinine 1.5 H 1.6 H 1.5 H
Criteria for SAMARA*
1 Increase in serum creatinine by > or = to 0.3 mg/dL (> or = to 26.5 micromol/L) within 48 hours, OR
2 Increase in serum creatinine to > or = to 1.5 times baseline, which is known or presumed to have occurred within 7 days, OR
3 Urine volume < 0.5 nL/kg/hour for six hours
Based on the above information and the recognized standard for SAMARA could you please verify this diagnoses is still accurate and reflective of the patient�s condition to ensure quality of the medical record.
Please clarify in the Progress Notes:
�SAMARA is/was present and is a clinical diagnosis based on (please include this additional support in the medical record)
�After study SAMARA has been ruled out
�Other
Use of terms such as suspected, likely, concern for, or probable (associated with a specific diagnosis that is being evaluated, monitored, or treated as if it exists) are acceptable and can be coded in the inpatient setting, when documented at the
time of discharge.
Thank you,
Valery Wolfe RN, BSN
CDI Specialist
tiger text
Please use your independent medical judgment in providing your response.
== END 2023-11-30 17:04 | disposition expired | DRG 640 ==
LOC: 2 NORTH 11:02
PROVIDERS: Emergency Medicine; Nurse Practitioner Gerontology; ADMITTING PHYSICIAN Internal Medicine; EMERGENCY PHYSICIAN Emergency Medicine; FAMILY PHYSICIAN Family Medicine; OTHER PHYSICIAN Specialist
DX: E83.52 Hypercalcemia (principal); G92.8 Other toxic encephalopathy; J96.01 Acute respiratory failure with hypoxia; N17.9 Acute kidney failure, unspecified; E87.4 Mixed disorder of acid-base balance; R64 Cachexia; Z68.1 Body mass index [BMI] 19.9 or less, adult; C78.7 Secondary malignant neoplasm of liver and intrahepatic bile duct; C02.9 Malignant neoplasm of tongue, unspecified; I25.10 Atherosclerotic heart disease of native coronary artery without angina pectoris; I10 Essential (primary) hypertension; F10.10 Alcohol abuse, uncomplicated; F17.200 Nicotine dependence, unspecified, uncomplicated; Z66 Do not resuscitate; R62.7 Adult failure to thrive; E78.00 Pure hypercholesterolemia, unspecified; M81.0 Age-related osteoporosis without current pathological fracture; Z51.5 Encounter for palliative care; Z79.82 Long term (current) use of aspirin; Z79.83 Long term (current) use of bisphosphonates; Z79.899 Other long term (current) drug therapy; Z95.5 Presence of coronary angioplasty implant and graft
CPT/HCPCS: 36600; 51701; 70450; 71045; 71046; 72170; 74176; 76700; 80048; 80053; 80076; 81003; 81015; 82077; 82140; 82306; 82330; 82550; 82652; 82784; 82805; 82962; 83519; 83605; 83735; 83880; 83970; 84100; 84132; 84155; 84165; 84443; 85025; 85027; 86334; 87040; 87502; 87811; 93005; 96360; 99285; 99406; J2430